=== PATIENT | female | born 2000 | race Caucasian/White ===

== ENCOUNTER 2021-02-19 21:17 | Emergency (ER) | payer BC, OTHER ==
[2021-02-19 21:31] VITALS: BP 116/78; PULSE 63
--- NOTE | 2021-02-19 21:54 | EDM.PDOC ---
ED HPI GENERAL MEDICAL PROBLEM - General Chief Complaint: Abdominal Pain Stated Complaint: abdominal pain Time Seen by Provider: 02/19/21 21:30 Source of Information: Reports: Patient, Other (Friend) History Limitations: Reports: No Limitations - History of Present Illness INITIAL COMMENTS - FREE TEXT/NARRATIVE: Ms. Jones is a very pleasant 20-year-old woman who now presents to the ED stating that her last menstrual period was from 02/12/2021, approximately, through 02/15/2021. Around that time, she developed diffuse abdominal cramps, which has persisted. Her pain is made worse if she urinates, and she also reports having both urinary frequency and urgency, although she denies having dysuria. She has had nausea, but no vomiting. No recent constipation or diarrhea. No recent fever. No prior similar symptoms. The patient states that she has taken some ibuprofen to address her symptoms. No prior medical evaluation for the symptoms. Here in the ED, the patient is found to be hemodynamically stable, afebrile, saturating 98% on room air. She appears to be quite comfortable, in no acute distress. Prior to last week, the patient denies having a recent fever, chills, sore throat, ear pain, nasal or sinus congestion, cough, dyspnea, chest pain, palpitations, nausea, vomiting, constipation, diarrhea, abdominal pain, urinary symptoms, recent weight gain or weight loss, recent bloody bowel movements or black bowel movements, recent joint aches, headaches, or rashes. The patient's PCP is Dr. Gale Perez. Abdomen Pain Score (Numeric/FACES): 3 - Related Data Allergies Allergy/AdvReac Type Severity Reaction Status Date / Time No Known Allergies Allergy Verified 02/19/21 21:31 Home Meds: Home Meds nitrofurantoin macrocrystaL [Nitrofurantoin] 1 cap PO Q12H #9 capsule 02/19/21 [Rx] Past Medical History Musculoskeletal History: Reports: Other (See Below) (Kyphosis) Endocrine/Metabolic History: Reports: Obesity/BMI 30+ - Past Surgical History HEENT Surgical History: Reports: Tonsillectomy Neurological Surgical History: Reports: Other (See Below) (Thoracic kyphosis rods) Musculoskeletal Surgical History: Reports: Other (See Below) (Left thumb trigger finger release) Social & Family History - Tobacco Use Tobacco Use Status *Q: Never Tobacco User Second Hand Smoke Exposure: No - Caffeine Use Caffeine Use: Reports: Energy Drinks - Alcohol Use Alcohol Use History: Yes Alcohol Use Frequency: Socially - Recreational Drug Use Recreational Drug Use: Yes Drug Use in Last 12 Months: Yes Recreational Drug Type: Reports: Marijuana/Hashish (smokes near-daily) - Living Situation & Occupation Living situation: Reports: Single, Other (with friends) Occupation: Employed ([employer]) ED ROS GENERAL - Review of Systems Review Of Systems: Comprehensive ROS is negative, except as noted in HPI. ED EXAM, RENAL/ - Physical Exam Exam: See Below Exam Limited By: No Limitations General Appearance: Alert, WD/WN, No Apparent Distress Eye Exam: Bilateral Eye: EOMI, Normal Inspection Ears: Normal External Exam, Hearing Grossly Normal Nose: Normal Inspection Throat/Mouth: Normal Inspection, Normal Lips, Normal Voice, No Airway Compromise Head: Atraumatic, Normocephalic Neck: Normal Inspection, Full Range of Motion Respiratory/Chest: No Respiratory Distress, Lungs Clear, Normal Breath Sounds, No Accessory Muscle Use Cardiovascular: Normal Peripheral Pulses, Regular Rate, Rhythm, No Gallop, No JVD, No Murmur, No Rub GI/Abdominal: Normal Bowel Sounds, Soft, No Organomegaly, No Distention, No Abnormal Bruit, No Mass, Tender (Mild, reproducible, to the suprapubic region only. Nontender elsewhere.) Back Exam: Normal Inspection, Full Range of Motion, Other (Well-healed surgical scar over the thoracic spine) Extremities: Normal Inspection, Normal Range of Motion, Normal Capillary Refill Neurological: Alert, Oriented, Normal Cognition, No Motor/Sensory Deficits Psychiatric: Normal Affect Skin Exam: Warm, Dry, Intact, Normal Color, No Rash Course - Vital Signs Last Recorded V/S: Last Vital Signs Temp 36.2 C 02/19/21 21:28 Pulse 63 02/19/21 21:28 Resp 18 02/19/21 21:28 BP 116/78 02/19/21 21:28 Pulse Ox 98 02/19/21 21:28 - Orders/Labs/Meds Orders: Active Orders 24 hr Category Date Time Status CULTURE URINE [MREF] Stat Lab 02/19/21 23:14 Ordered Labs: Laboratory Tests 02/19/21 02/19/21 Range/Units 22:50 22:50 Urine Color Yellow (Yellow) Urine Appearance Clear (Clear) Urine pH 6.5 (5.0-8.0) Ur Specific [place] 1.015 (1.005-1.030) Urine Protein Negative (Negative) Urine Glucose (UA) Negative (Negative) Urine Ketones Negative (Negative) Urine Occult Blood Negative (Negative) Urine Nitrite Negative (Negative) Urine Bilirubin Negative (Negative) Urine Urobilinogen 0.2 (0.2-1.0) Ur Leukocyte Esterase 3+ H (Negative) Urine RBC 0-5 (0-5) /hpf Urine WBC 20-30 H (0-5) /hpf Ur Squamous Epith Cells 5-10 H (0-5) /hpf Urine Bacteria Few (FEW) /hpf Urine Mucus Few (FEW) /hpf Urine HCG, Qual Negative (NEGATIVE) Meds: Medications Discontinued Medications Generic Name Dose Route Start Last Admin Trade Name Freq PRN Reason Stop Dose Admin Nitrofurantoin Macrocrystals 100 mg 02/19/21 23:14 02/19/21 23:26 Nitrofurantoin Monohydrate/Macrocrystalline 100 Mg Cap PO 02/19/21 23:15 100 mg ONETIME STA Administration - Re-Assessments/Exams Free Text/Narrative Re-Assessment/Exam: 02/19/21 21:49 As above, the patient had her menstrual period from approximately 02/12/2021 through 02/15/2021, and at some point along the inner developed diffuse abdominal cramps, made worse with urination. She is also experienced urinary frequency and urgency, although no dysuria. She has had nausea, but no vomiting or other symptoms. On examination, she has some reproducible tenderness to her suprapubic region, otherwise, her physical exam is unremarkable. I have ordered a urinalysis by clean-catch, along with a urine test. 02/19/21 23:15 The patient's urinalysis is remarkable for negative occult blood with 0-5 RBCs, 3+ leukocyte esterase with 20-30 WBCs, negative nitrite with few bacteria, and 5-10 squamous epithelial cells. Based on the above, I have ordered a urine culture, and will start the patient on oral nitrofurantoin. 02/19/21 23:54 Test results discussed with the patient. As above, it appears that the patient has simple cystitis. I will submit a prescription for nitrofurantoin to the [facility]. I would like her to follow-up with her PCP this coming Thursday, to have them check on the urine culture results. The patient requested a note to be off work tomorrow. Departure - Departure Time of Disposition: 23:54 Disposition: Home, Self-Care 01 Condition: Good Clinical Impression: Cystitis - Discharge Information *PRESCRIPTION DRUG MONITORING PROGRAM REVIEWED*: Not Applicable *COPY OF PRESCRIPTION DRUG MONITORING REPORT IN PATIENT SRINI: Not Applicable Prescriptions: nitrofurantoin macrocrystaL [Nitrofurantoin] 1 cap PO Q12H #9 capsule Instructions: Urinary Tract Infection, Adult, [id number] Referrals: Gale Perez MD [Ordering Only Provider] - Forms: ED Department Discharge, ED Return to Work/School Form Additional Instructions: You were seen in the emergency room after developing lower abdominal cramping, worse with urination, along with frequent urination and the need to urinate even though you just recently urinated. Work-up in the ER included a urinalysis and a urine test. Your your urinalysis indicates that you have a urinary tract infection. Your urine test was negative. A sample of your urine has been sent for culture. You have been started on the antibiotic nitrofurantoin, and a prescription for nitrofurantoin has been sent to the [facility], located just south and [place] [address] from [facility]. Take 1 tablet of nitrofurantoin every 12 hours, starting tomorrow morning, 02/20/2021, as prescribed. Finish the entire prescription unless told otherwise by your doctor. Stay adequately hydrated. It does not really matter what type of fluid you drink. A note to be off work tomorrow has been provided to you. We recommend that you follow-up with your PCP, Dr. Gale Perez, this coming 02/22/2021, to have them check on your urine culture result, to make sure that you are on the correct antibiotic. If any other problems, please do not hesitate to return to the ER. Sepsis Event Note (ED) - Evaluation Sepsis Screening Result: No Definite Risk - Focused Exam Vital Signs: Vital Signs Temp Pulse Resp BP Pulse Ox 02/19/21 21:28 36.2 C 63 18 116/78 98 - My Orders Last 24 Hours: My Active Orders 02/19/21 23:14 CULTURE URINE [MREF] Stat - Assessment/Plan Last 24 Hours: My Active Orders 02/19/21 23:14 CULTURE URINE [MREF] Stat
[2021-02-19] MEDS ORDERED: Nitrofurantoin Monohydrate/Macrocrystalline 100 MG Cap PO STA (23:14)
== END 2021-02-20 00:10 | disposition home or self-care (01) ==
LOC: JD.ED 21:17
DX: N30.90 Cystitis, unspecified without hematuria (principal); E66.9 Obesity, unspecified; Z68.38 Body mass index [BMI] 38.0-38.9, adult
CPT/HCPCS: 81001; 81025; 99284; A9270; 99283